=== PATIENT | male | born 1975 | race Caucasian/White ===

== ENCOUNTER → 2018-06-24 14:22 | Outpatient (CLI) | payer BC, SELFPAY | PROVIDERS: Family Provider Family Medicine; PCP Family Medicine; Visit Provider Family Medicine | DX: M71.21 Synovial cyst of popliteal space [Baker], right knee (principal) | CPT/HCPCS: 76882 ==

== ENCOUNTER → 2018-12-15 17:47 | Outpatient (CLI) | payer BC, SELFPAY ==
--- NOTE | 2018-12-15 18:00 | MRI_ITS ---
STUDY: MRI CERVICAL SPINE WITH AND WITHOUT CONTRAST REASON FOR EXAM: Male, 43 years old. Left arm and neck pain TECHNIQUE: Standardized fat and water weighted pulse sequences were obtained in the sagittal and axial following administration of Gadavist 9 IV. COMPARISON: None FINDINGS: Normal foramen magnum and brainstem-cervical cord junction. Normal craniovertebral junction. Normal anterior atlantoaxial articulation. Normal odontoid process. Normal cervical lordosis. Normal vertebral bodies and posterior osseous elements. C2-3: Normal endplates. Normal disc height, signal and morphology. Normal central canal and intervertebral neural foramina. C3-4: Normal endplates. Normal disc height, signal and morphology. Normal central canal and intervertebral neural foramina. C4-5: Normal endplates. Normal disc height, signal and large left posterolateral/foraminal disc/osteophyte protrusion. There is very mild impingement upon the left anterior lateral aspect of the cord. Severe left neuroforaminal stenosis C5-6: Normal endplates. Normal disc height, signal and tiny left paracentral disc protrusion. Normal central canal. Minor bilateral neural foraminal encroachment secondary to bony hypertrophy C6-7: Normal endplates. Normal disc height, signal and morphology. Normal central canal and intervertebral neural foramina. C7-T1: Normal endplates. Normal disc height, signal and morphology. Normal central canal and intervertebral neural foramina. Normal cervical cord. No enhancing lesions following contrast injection. Normal visualized soft tissue structures. MRI/Spine Cervical W/WO Contrast IMPRESSION: Severe left neuroforaminal stenosis at C4-5 secondary to large left posterolateral/foraminal disc/osteophyte protrusion which also impinges upon the cord. Minor bilateral neuroforaminal stenosis at C5-C6 secondary to bony hypertrophy Electronically Signed: Erasmo Joy MD at 19:17 EST , Service support ,
== END ==
PROVIDERS: Family Provider Family Medicine; PCP Family Medicine; Referring Provider Neurological Surgery; Visit Provider Neurological Surgery
DX: R29.898 Other symptoms and signs involving the musculoskeletal system (principal)
CPT/HCPCS: 72156; A9585

== ENCOUNTER → 2023-01-29 | Outpatient (CLI) | payer OTHER, SELFPAY ==
[2023-01-29 08:11] LABS: Anion Gap 6 (5-15); BUN 18 mg/dL (7-18); BUN/Creat Ratio 17.3 RATIO (10-20); Calcium,Total 9.1 mg/dL (8.5-10.1); Chloride 106 mmol/L (98-107); Cholesterol 201 mg/dL (200); Creatinine, Serum 1.04 mg/dL (0.70-1.30); EST Glomerular Filtration Rate 81 mL/min (>60); Est Glom Filt Rate - Afr Amer 98 mL/min (>60); Glucose 90 mg/dL (74-106); High Density Lipoprotein 48 mg/dL; Potassium 3.8 mmol/L (3.5-5.1); Sodium Level 140 mmol/L (136-145); Triglycerides 100 mg/dL; Very Low Density Lipoprotein 20 mg/dL (5-40)
== END | disposition home or self-care (01) ==
PROVIDERS: PCP Family Medicine; Referring Provider Family Medicine; Visit Provider Family Medicine
DX: Z13.1 Encounter for screening for diabetes mellitus (principal); Z13.220 Encounter for screening for lipoid disorders
CPT/HCPCS: 36415; 80048; 80061

== ENCOUNTER → 2024-07-06 | Outpatient (CLI) | payer OTHER, SELFPAY ==
--- NOTE | 2024-07-06 13:00 | RAD_ITS ---
STUDY: X-RAY - LUMBAR SPINE REASON FOR EXAM: Male, 48 years old. Acute back pain. TECHNIQUE: 3 view(s) of the lumbar spine were obtained. COMPARISON: None FINDINGS: Normal lumbar lordosis. There is no substantial scoliosis. There is a normal alignment of the vertebrae. Normal vertebral bodies and endplates. Mild intervertebral disc space narrowing diffusely with small osteophytes most marked at L2-3, L3-4 and L4-5. The soft tissue structures are normal. RAD/Lumbar Spine 2 or 3 Views IMPRESSION: Lower lumbosacral spondylosis as described. Electronically Signed: Mark Mckeon MD at 13:42 EDT ,
== END | disposition home or self-care (01) ==
PROVIDERS: PCP Family Medicine; Referring Provider Family Medicine; Visit Provider Family Medicine
DX: M54.50 Low back pain, unspecified (principal)
CPT/HCPCS: 72100

== ENCOUNTER → 2024-07-10 | Outpatient (CLI) | payer OTHER, SELFPAY ==
--- NOTE | 2024-07-10 11:04 | MRI_ITS ---
STUDY: MRI LUMBAR SPINE WITH AND WITHOUT CONTRAST REASON FOR EXAM: Male, 48 years old. low back pain, a-traumatic, hx of spinal tumor/prior surgery, COMPARE TO PRIOR TECHNIQUE: Standardized fat and water weighted pulse sequences were obtained in the sagittal and axial planes. IV CLARISCAN 17ML was administered for the contrast portion of the examination. COMPARISON: X-ray the lumbar spine dated July 06, 2024. FINDINGS: There is straightening of the normal lumbar lordosis. There is no substantial scoliosis. Normal conus medullaris that terminates at the T12 level. No marrow edema or fracture or compression deformity is present. There are no aggressive or malignant lesions of the lumbar spine. There is no evidence of infection. No abnormally enhancing lesions are present. Benign fatty hemangiomas are seen in several vertebral bodies which are of no clinical significance. Posterior surgical decompressive defects at L1-L2 and L2-L3 redemonstrated. No demonstrated evidence of arachnoiditis. T12-L1: Normal endplates. Normal disc height, hydration and morphology. Normal bilateral facet joints. Normal central canal and bilateral lateral recesses. Normal bilateral intervertebral neural foramina. L1-2: Normal endplates. Normal disc height, hydration and morphology. Normal bilateral facet joints. Normal central canal and bilateral lateral recesses. Normal bilateral intervertebral neural foramina. L2-3: Normal endplates. Normal disc height, hydration and morphology. Normal bilateral facet joints. Normal central canal and bilateral lateral recesses. Normal bilateral intervertebral neural foramina. L3-4: Normal endplates. Diffuse disc desiccation with mild disc space narrowing and posterior annular bulging eccentric to the right with right lateral recess stenosis and impingement on the descending nerve root. Left lateral recess stenosis with nerve root compression is also present. Mild central canal stenosis. Mild facet joint hypertrophy. Normal bilateral intervertebral neural foramina. L4-5: Diffuse disc desiccation with mild disc space narrowing and annular bulging. Shallow superimposed midline disc protrusion and annular tear. Normal bilateral facet joints. Normal central canal and bilateral lateral recesses. Normal bilateral intervertebral neural foramina. L5-S1: Diffuse disc desiccation with mild disc space narrowing, small annular tear in the posterior aspect of the disc and a midline to right paracentral disc protrusion resulting in mild impingement on the right descending nerve root in the lateral recess. Normal central canal and left lateral recess. Mild left facet joint hypertrophy and degeneration. Normal bilateral intervertebral neural foramina. Normal visualized sacral ala. Normal visualized paraspinous soft tissue structures. MRI/Spine Lumbar W/WO Contrast IMPRESSION: 1. Multilevel degenerative changes, as described above. 2. There are no aggressive or malignant lesions of the lumbar spine. There is no evidence of infection. No abnormally enhancing lesions are present. Benign fatty hemangiomas are seen in several vertebral bodies which are of no clinical significance. Posterior surgical decompressive defects at L1-L2 and L2-L3 redemonstrated. No demonstrated evidence of arachnoiditis. Electronically Signed: Shane Arrington MD at 10:11 EDT ,
== END | disposition home or self-care (01) ==
PROVIDERS: PCP Family Medicine; Referring Provider Family Medicine; Visit Provider Family Medicine
DX: R29.898 Other symptoms and signs involving the musculoskeletal system (principal); M54.50 Low back pain, unspecified
CPT/HCPCS: 72158; A9575

== ENCOUNTER → 2024-12-06 | Outpatient (CLI) | payer OTHER, SELFPAY ==
[2024-12-06 08:09] LABS: Anion Gap 4 (5-15); BUN 17 mg/dL (7-18); BUN/Creat Ratio 18.7 RATIO (10-20); Chloride 108 mmol/L (98-107); Creatinine, Serum 0.91 mg/dL (0.70-1.30); EST Glomerular Filtration Rate 93 mL/min (>60); Est Glom Filt Rate - Afr Amer 113 mL/min (>60); Glucose 96 mg/dL (74-106); Potassium 4.1 mmol/L (3.5-5.1); Sodium Level 142 mmol/L (136-145)
== END | disposition home or self-care (01) ==
LOC: LAB 06:31
PROVIDERS: PCP Family Medicine; Referring Provider Anesthesiology Pain Medicine; Visit Provider Anesthesiology Pain Medicine
DX: Z79.899 Other long term (current) drug therapy (principal); Z79.1 Long term (current) use of non-steroidal anti-inflammatories (NSAID)
CPT/HCPCS: 36415; 80048

== ENCOUNTER → 2025-05-31 | Outpatient (CLI) | payer OTHER, SELFPAY ==
[2025-05-31 10:24] LABS: Hematocrit 47.1 % (40-54); Hemoglobin 15.9 g/dL (13.0-16.5); Mean Corp Hgb Conc 33.8 g/dL (32-36); Mean Corpuscular Volume 92.0 fL (80-94); Mean Platelet Vol. 9.6 fl (6.2-12.0); Platelet Count 282 K/mm3 (150-450); RBC Distribution Width CV 12.3 % (11.6-14.6); RBC Distribution Width SD 41.7 fl (35.1-43.9); Red Blood Count 5.12 M/mm3 (4.6-6.2); White Blood Count 5.9 K/mm3 (4.4-11.0)
[2025-05-31 11:09] LABS: AST(SGOT) 18 U/L (<=37); Alanine Aminotransfer ALT/SGPT 18 U/L (<=46); Albumin, Serum 4.5 g/dL (3.5-5.0); Alkaline Phosphatase 77 U/L (40-129); Anion Gap 9 (5-15); BUN 16 mg/dL (4-19); BUN/Creat Ratio 16.8 RATIO (10-20); Calcium,Total 9.4 mg/dL (7.6-11.0); Carbon Dioxide 27.1 mmol/L (21.0-32.0); Chloride 104 mmol/L (98-108); Globulin 2.7 g/dL (2.2-4.2); Glucose 93 mg/dL (70-99); Magnesium 2.4 mg/dL (1.5-2.2); PSA,Total - Annual Screen 0.44 ng/mL (0.02-4.00); Potassium 4.2 mmol/L (3.3-5.1)
== END | disposition home or self-care (01) ==
LOC: MTLAB 09:03
PROVIDERS: PCP Family Medicine; Referring Provider Family Medicine; Visit Provider Family Medicine
DX: R55 Syncope and collapse (principal); G47.10 Hypersomnia, unspecified; Z12.5 Encounter for screening for malignant neoplasm of prostate
CPT/HCPCS: 36415; 80053; 83735; 84153; 84443; 85027; G0103